=== PATIENT | female | born 2005 | race Caucasian/White ===

== ENCOUNTER 2024-08-07 06:42 | Outpatient (REF) | payer BC, SELFPAY ==
--- NOTE | ~2024-08-07 | US_ITS ---
CLINICAL HISTORY: positive test, dating OB Ultrasound less than 14 weeks transabdominal only Comparison: None Findings: On transabdominal ultrasound the uterus measures 8.3 x 5.3 x 6.2 cm and is anteverted. There is a single intrauterine gestational sac containing a yolk sac and pole. Cardiac activity is identified at a rate of 120 beats per minute. By crown-rump length of 0.4 cm, EGA by today's ultrasound: 6 weeks 1 day. KATIE by today's ultrasound: 04/01/2025 By LMP 06/23/2024. EGA is 6 weeks 3 days and KATIE of 03/30/2025. The ovaries are normal in appearance and size. No adnexal masses or significant free fluid. Impression: 1. Single living intrauterine gestation estimated at 6 weeks 1 day by today's ultrasound criteria. 2. Clinical menstrual age and sonographic gestational age are concordant. This document has been electronically signed by: Joel Black MD on 08/07/2024 11:22:54
--- OUTSIDE RECORDS SUMMARY | 2024-08-07 06:44 | XMS_ITS | Clinical Summary ---
Author Organization [address] Address [address] [place] [id number] Phone Care Team Providers Care Bar Helper Name Role Phone Ryann Roman MD Primary Care Provider [phone] Allergies Active Allergy Reactions Criticality Noted Date Comments Prednisone Itching Medium 03/24/2020 Medications buPROPion XL (WELLBUTRIN XL) 300 mg 24 hr tablet Take 450 mg by mouth every morning. Active UNABLE TO FINDIndications: control Mylin Active aspirin 325 mg EC tablet Take 1 tablet (325 mg total) by mouth daily. 14 tablet 04/08/2020 Active metFORMIN XR (GLUCOPHAGE-XR) 500 mg 24 hr tablet 05/17/2020 Active Active Problems No known active problems Social History Tobacco Use Types Packs/Day Years Used Date Smoking Tobacco: Never Alcohol Use Standard Drinks/Week Comments Never 0 (1 standard drink = 0.6 oz pur e alcohol) AUDIT-C Answer Date Recorded Q1: How often do you have a drink containing alc ohol? Never 04/08/2020 Average Number of Drinks Not on file 020 Frequency of Binge Drinking Not on file 03/25 Comments No Sex and Gender Information Value Date Recorded Sex Assigned at Not on file Legal Sex Female 10:50 AM EDT Gender Identity Not on file Sexual Orientation Not on file Last Filed Vital Signs Vital Sign Reading Time Taken Comments Blood Pressure 105/70 04/08/2020 12:00 PM EDT Pulse 78 04/08/2020 11:45 AM EDT Temperature 37.1 ??C (98.8 ??F) 04/08/2020 10:58 AM E DT Respiratory Rate 17 04/08/2020 10:58 AM EDT Oxygen Saturation 99% 04/08/2020 11:45 AM EDT Inhaled Oxygen Concentration - - Weight 90.7 kg (200 lb) 06/30/2020 9:00 AM EST p er patient Height 165.1 cm (5' 5 ) 06/30/2020 9:00 AM EST Body Mass Index 33.28 06/30/2020 9:00 AM EST Plan of Treatment Health Maintenance Due Date Last Done Comments HIV screening 2016 Chlamydia screening 2020 Hepatitis C screening 2021 Influenza Vaccine Pediatric (#1) 2024 04/02/2020, 05/11/2016, 05/11/2016, Additional history exists Covid-19 vaccine series ( season) 2024 Cervical cancer screening 2024 DTaP/TDaP Vaccines (7 - Td or Tdap) 11/09/2024 11/09/2014, 05/02/2007, 09/29/2004, Additional history exists Tetanus adult (Td q 10,TDAP once) 11/09/2024 11/09/2014, 05/02/2007, 09/29/2004, Additional history exists RSV Discussion (1 - 1-dose 75+ series) 2078 Hepatitis B vaccine series Completed 01/19, 2003, 2003 IPV Vaccines Completed 05/02/2007, 12/2004, 2003, Additional history exists MMR Vaccines Completed 05/02/2007, 08/25/2004 Varicella Vaccines Completed 03/27/2008, 07/05/2004 HIB Vaccines Completed 10/08/2015, 08/25, 01/31/2004, Additional history exists HPV vaccine series Completed 12/06/2016, 05/11/2016 Hepatitis A Vaccines Completed 06/02/2020, 09/09/19 10 Meningococcal Vaccine Completed 06/02/2020, 015 Pneumococcal Vaccine Aged Out No long er eligible based on patient's age to complete this topic Rotavirus Vaccines Aged Out No longer eligible based on patient's age to complete this topic Insurance BCBS BCBS BS Care Teams Bar Helper Relationship Specialty Start Date End Date Ryann Roman MD [facility] [place] [id number] PCP - General Pediatrics 06/25/19
== END 2024-08-07 06:43 | disposition home or self-care (01) ==
LOC: HO.UMASIMG 06:42
PROVIDERS: Visit Provider Family Medicine
DX: Z34.91 Encounter for supervision of normal pregnancy, unspecified, first trimester (principal); Z3A.01 Less than 8 weeks gestation of pregnancy
CPT/HCPCS: 76801